=== PATIENT | female | born 1965 | race Caucasian/White ===

== ENCOUNTER 2016-03-29 16:08 | Emergency (ER) | payer MEDICAID, OTHER ==
[2016-03-29] MEDS ORDERED: LIDOCAINE HCL 20 ML UDC MM ONE (16:36)
[2016-03-29] MEDS ORDERED: MAG HYDROX/ALUMINUM HYD/SIMETH 30 ML UDC PO ONE (16:36)
[2016-03-29] MEDS ORDERED: SUCRALFATE 1 G/10 ML UDC PO ONE (16:36)
[2016-03-29 16:48] LABS: Hematocrit 48.8 % (37.0-47.0); Hemoglobin 17.1 gm/dL (12.5-16.0); Mean Cell Volume 88.2 fl (78-100); Mean Corpuscular Hemoglobin 30.9 pg (27-31); Mean Platelet Volume 9.2 fl (6.0-9.5); Neutrophil # 6.3 K/mm3 (1.3-6.0); Neutrophil % 69.8 % (42-75.0); Platelet Count 430 K/mm3 (150-450); Red Blood Count 5.53 M/mm3 (4.2-5.4); Red Cell Distribution Width 12.7 % (11.5-14.0)
[2016-03-29] MEDS ORDERED: ONDANSETRON HCL/PF 2 MG/ML VIAL IV ONE (17:03)
[2016-03-29] MEDS ORDERED: KETOROLAC TROMETHAMINE 30 MG/ML VIAL IV ONE (17:03)
[2016-03-29] MEDS ORDERED: NORMAL SALINE 1,000 ML IV ONE (17:03)
[2016-03-29 17:08] LABS: Urine Bilirubin Negative (NEGATIVE); Urine Blood 250 /ul (NEGATIVE); Urine Ketone 5 mg/dL (NEGATIVE); Urine Nitrite Negative (NEGATIVE); Urine Protein Negative (NEGATIVE); Urine Urobilinogen Normal (NORMAL); Urine pH 5.5 pH (5.0-7.0)
[2016-03-29 17:10] LABS: Albumin * 4.1 gm/dl (3.4-5.0); Anion Gap 15.8 mmol/L (6.8-13.8); BUN/Creatinine Ratio 18.2 (9.0-21.6); Bilirubin, Total 0.3 mg/dL (0.0-1.1); Ca. Corrected For Albumin 9.9 mg/dL (8.4-10.2); Calcium * 10.3 mg/dL (7.9-10.9); Carbon Dioxide 23.6 mmol/L (24-32.6); Potassium 4.4 mmol/L (3.4-4.6); Total Protein 8.3 gm/dL (6.2-8.2)
[2016-03-29 17:15] LABS: Urine Appearance Clear; Urine Bacteria None Seen; Urine Color Yellow; Urine WBC None Seen /hpf (0-5)
[2016-03-29] MEDS ORDERED: ONDANSETRON HCL/PF 2 MG/ML VIAL ONE (17:22)
[2016-03-29] MEDS ORDERED: KETOROLAC TROMETHAMINE 30 MG/ML VIAL ONE (17:22)
[2016-03-29] MEDS ORDERED: MORPHINE SULFATE 2 MG/ML DISP.SYRIN ONE (18:38)
[2016-03-29] MEDS ORDERED: MORPHINE SULFATE 2 MG/ML DISP.SYRIN IV ONE (18:38)
[2016-03-29] MEDS ORDERED: FAMOTIDINE 10 MG/ML VIAL IV ONE ×2 (18:40→18:44)
--- NOTE | 2016-03-29 18:50 | ERNOTE ---
Abdominal HPI - Narrative Date of Service: 03/29/16 - General Chief Complaint: Abdominal Pain Time Seen by Provider: 03/29/16 17:00 Source: patient, RN notes reviewed Exam Limitations: no limitations - Immun/Allergies/Home Medications Immunizatons: IMMUNIZATION HX Immunizations Up to Date Yes History of Influenza Vaccine No Hx Pneumococcal Vaccination No Allergies/Adverse Reactions: Allergies codeine Allergy (Verified 03/29/16 16:29) cortisone [Cortisone] Allergy (Verified 03/29/16 16:29) Home Medications: HOME MEDICATIONS Clonazepam 2 mg PO HS PRN 01/16/15 [Last Taken Unknown] Alprazolam [Xanax Xr] 0.5 mg PO TID 03/29/16 [Last Taken Unknown] Dextroamphetamine/Amphetamine [Adderall 20 mg Tablet] 20 mg PO DAILY 03/29/16 [ Last Taken Unknown] Divalproex Sodium [Depakote ER] 1,000 mg PO DAILY 03/29/16 [Last Taken Unknown] Ibuprofen [Motrin] 200 mg PO Q6H 03/29/16 [Last Taken Unknown] Lisdexamfetamine Dimesylate [Vyvanse] 70 mg PO DAILY 03/29/16 [Last Taken Unknown] Ondansetron HCl [Zofran] 8 mg PO QID 03/29/16 [Last Taken Unknown] Promethazine HCl [Phenergan Suppository] 25 mg RC Q6H PRN #6 supp.rect 03/29/16 [Last Taken Unknown] Propranolol HCl [Inderal Xl] 240 mg PO DAILY 03/29/16 [Last Taken Unknown] Tramadol HCl [Rybix Odt] 100 mg PO QID PRN 03/29/16 [Last Taken Unknown] - History of Present Illness Narrative: 50 y/o female ambulatory to the ED for vomiting that began 2 days ago and epigastric pain that began last night. She routinely takes several different OTC medications for reflux and is on Tramadol for chronic pain. She has not been able to tolerate any of these because of her vomiting. Date (Duration): 03/27/16 Timing: constant Quality: severe Activities at Onset: other - vomiting Review of Systems - Review of Systems Constitutional: Present: fatigue, malaise. Absent: fever, chills EYE: Present: no symptoms reported ENT: Present: no symptoms reported Respiratory: Absent: shortness of breath, cough Cardiology: Absent: chest pain, palpitations, syncope Gastrointestinal/Abdominal: Present: nausea, vomiting, abdominal pain, eating less, drinking less. Absent: diarrhea, constipation Genitourinary: Absent: frequency, dysuria Musculoskeletal: Absent: back pain, neck pain Skin: Absent: rash, lesions Neurological: Absent: headache, dizziness/light-headedness Endocrine: Present: no symptoms reported Hematologic/Lymphatic: Present: no symptoms reported Psych: Present: no symptoms reported - Patient's Past Medical History Patient History - Medical: ADHD, Chronic Pain, GERD, Migraines Patient History - Cardiac/Respiratory: Asthma Patient History - Cancer: No Hx of Cancer Patient History - Surgical Procedures: Cholecystectomy, , Tubal Ligation, Other LMP (females 10-50): 1 month - Social History Living Situations: home Smoking Status: Current every day smoker Have you smoked in the past 12 months: Yes Alcohol Use: none Drug Use: none Physical Exam - Physical Exam General Appearance: Present: wd/wn, alert, mild distress Respiratory: Present: no respiratory distress, normal breath sounds, no accessory muscle use, lungs clear Cardiovascular/Chest: Present: regular rate, rhythm, no murmur, normal peripheral pulses Gastrointestinal/Abdominal: Present: normal bowel sounds, nondistended, soft, tenderness - epigastric Neurological Exam: Present: alert, oriented, normal mood/affect, no motor/ sensory deficits Skin Exam: Present: normal color, warm/dry ED Progress - Results and Orders Patient's Lab Results:: I have reviewed the patient's lab results. - Vital Signs Patient's Vital Signs:: I have reviewed the patient's vital signs. Vital Signs: Vital Signs 03/29/16 03/29/16 03/29/16 16:24 17:15 18:17 Temperature 37.0 C Pulse Rate 150 H 133 H 110 H Respiratory 16 16 16 Rate Blood Pressure 113/76 128/72 138/74 O2 Sat by Pulse 98 97 97 Oximetry - X-Ray X-Ray #1 X-Ray: abdomen Interpretation: Reviewed by me X-ray Comments: Technique: Supine and upright views the abdomen utilizing four total images. Findings: Cholecystectomy clips in the right upper quadrant. Stool mixed with hyperdense material suggestive of [id number] bismuth preparation seen throughout the colon. No dilation of colon. There is a few scattered nondilated air-filled loops of small bowel seen in the mid abdomen. No evidence for small bowel obstruction. Findings could represent gastroenteritis. No free air or free fluid. Mild degenerative change of the lower spine and bilateral hips. IMPRESSION: 1. SCATTERED AIR-FILLED LOOPS OF SMALL BOWEL SUGGESTIVE OF VIRAL GASTROENTERITIS. NO EVIDENCE FOR OBSTRUCTION. 2. CHOLECYSTECTOMY. 3. MILD DEGENERATIVE CHANGES ABOVE. Electronically signed by Keith Andrew D.O.. - Progress/Reassessment Chief Complaint: Abdominal Pain Progress:: Improved Progress Note-Subjective: 03/29/16 18:49 Nausea resolved but no improvement in pain with Toradol. Morphine and Pepcid ordered. Patient appears very uncomfortable. Plan - Plan Plan: Pain resolved with IV Morphine and Pepcid - patient has severe GERD and pain likely caused by her vomiting and being unable to tolerate her routine medications. Has Zofran at home but reports it hasn't been effective. Will d/c with Phenergan suppositories. Departure - Departure Clinical Impression: Epigastric abdominal pain Vomiting Qualifiers: Vomiting type: unspecified Vomiting Intractability: non-intractable Nausea presence: with nausea Qualified Code(s): R11.2 - Nausea with vomiting, unspecified Disposition: Home Follow Up Needed Condition: Good Instructions: Viral Gastroenteritis, Adult, [id number] Additional Instructions: Return for worsening pain or uncontrolled vomiting Referrals: Mitesh Calixto MD [Primary Care Provider] - Prescriptions: Promethazine HCl [Phenergan Suppository] 25 mg RC Q6H PRN #6 supp.rect PRN Reason: Nausea
[2016-03-29] MEDS ORDERED: PROMETHAZINE HCL 12.5 MG SUPP.RECT RC ONE ×2 (20:03→20:06)
[2016-03-29 20:10] VITALS: BP 141/85
== END 2016-03-29 20:08 | disposition home or self-care (01) ==
LOC: ER 16:08
DX: R11.2 Nausea with vomiting, unspecified (principal); R10.13 Epigastric pain; F17.210 Nicotine dependence, cigarettes, uncomplicated

== ENCOUNTER 2016-12-02 16:53 | Emergency (ER) | payer OTHER ==
--- NOTE | 2016-12-02 17:16 | ERNOTE ---
Psychological HPI - General Source: Reports: patient Exam Limitations: Reports: no limitations - Immun/Allergies/Home Medications Allergies/Adverse Reactions: Allergies codeine Allergy (Verified 12/02/16 17:05) cortisone [Cortisone] Allergy (Verified 12/02/16 17:05) Home Medications: HOME MEDICATIONS Clonazepam 2 mg PO HS PRN 01/16/15 [Last Taken Unknown] Alprazolam [Xanax Xr] 1 mg PO BID PRN 03/29/16 [Last Taken Unknown] Ibuprofen [Motrin] 600 mg PO Q6H PRN 03/29/16 [Last Taken Unknown] Lisdexamfetamine Dimesylate [Vyvanse] 70 mg PO DAILY 03/29/16 [Last Taken Unknown] Ondansetron HCl [Zofran] 8 mg PO QID 03/29/16 [Last Taken Unknown] Propranolol HCl [Inderal Xl] 60 mg PO DAILY 03/29/16 [Last Taken Unknown] Tramadol HCl [Rybix Odt] 100 mg PO QID PRN 03/29/16 [Last Taken Unknown] Acetaminophen [Tylenol] 650 mg PO QID 12/02/16 [Last Taken Unknown] Cholecalciferol (Vitamin D3) [Vitamin D3] 5,000 unit PO DAILY 12/02/16 [Last Taken Unknown] Meclizine HCl 25 mg PO TID PRN 12/02/16 [Last Taken Unknown] Multivitamin [Multivitamins] 1 each PO DAILY 12/02/16 [Last Taken Unknown] Nicotine Polacrilex [Nicotine Gum] 4 mg BC Q2H PRN 12/02/16 [Last Taken Unknown] Nicotine [Nicoderm] 21 mg TD DAILY 12/02/16 [Last Taken Unknown] Polyethylene Glycol 3350 [Miralax] 17 gm PO DAILY 12/02/16 [Last Taken Unknown] Ranitidine HCl [Zantac] 300 mg PO HS 12/02/16 [Last Taken Unknown] - History of Present Illness Narrative: Patient has a history of major depression,anxiety, ADHD, and chronic pain. She was discharged from the [facility] a week ago after being hospitalized for two weeks after attempting suicide by cutting her wrist. She is currently staying with her sister that is not supposed to have people stay with her and is coming here for a referral to the [facility] in [place] that has one bed left. She states that she has daily thought of hurting herself. When asked how likely it is that she would hurt herself she vehemently denies acute suicidal ideation. Time Seen by Provider: 12/02/16 16:55 Review of Systems - Review of Systems Constitutional: Absent: recent illness, fever ENT: Absent: nose congestion, sore throat Respiratory: Absent: shortness of breath Cardiology: Absent: chest pain Gastrointestinal/Abdominal: Absent: nausea, abdominal pain Genitourinary: Present: no symptoms reported Musculoskeletal: Present: other - chronic pain Neurological: Present: depressed Endocrine: Present: no symptoms reported Hematologic/Lymphatic: Absent: easy bruising, easy bleeding - Patient's Past Medical History Patient History - Medical: ADHD, Anxiety, Chronic Pain, Depression, GERD, Migraines Patient History - Cardiac/Respiratory: Hypertension Patient History - Cancer: No Hx of Cancer Patient History - Surgical Procedures: Cholecystectomy, , Tubal Ligation, Other, Orthopedic Patient History - Other: None - Social History Living Situations: home Abuse History: No History of abuse Psych History: Psychiatric Hx, Hx of Anxiety, Hx of Depression, Hx of Suicide Attempt, Hx of Psychiatric Tx Smoking Status: Current every day smoker Have you smoked in the past 12 months: Yes Alcohol Use: none Drug Use: none - Immunizations Immunizations Up to Date: Yes Hx Pneumococcal Vaccination: No History of Influenza Vaccine: No Psychological Exam - Exam General Appearance: Present: wd/wn, alert, no apparent distress Head Exam: Present: normal inspection Neurological: Present: alert, normal mood/affect, calm, oriented x 3 Thoughts/Hallucinations: Present: normal thought pattern, no apparent hallucination Behavior/Eye Contact/Speech: Present: cooperative, good eye contact, normal speech Eye Exam: Normal inspection: bilateral Respiratory: Present: no respiratory distress, normal breath sounds, no accessory muscle use, lungs clear Cardiovascular/Chest: Present: regular rate, rhythm, no murmur Extremity Exam: Present: normal inspection Skin Exam: Present: normal color, warm/dry ED Progress - Vital Signs Patient's Vital Signs:: I have reviewed the patient's vital signs. Vital Signs: Vital Signs 12/02/16 16:57 Temperature 37 C Pulse Rate 100 Respiratory 14 Rate Blood Pressure 170/102 O2 Sat by Pulse 100 Oximetry - Progress/Reassessment Progress Note-Subjective: 12/02/16 18:35 call back from [employer] worker, will come to evaluate patient - Transfer of Care Physician Sign Out: Fannie Valenzuela Receiving Physician: Leroy Salazar Departure Clinical Impression: Anxiety Depression Qualifiers: Depression Type: unspecified Qualified Code(s): F32.9 - Major depressive disorder, single episode, unspecified - Departure Disposition: Home self-care Condition: Stable Referrals: Mitesh Calixto MD [Primary Care Provider] -
[2016-12-02] MEDS ORDERED: IBUPROFEN 400 MG TABLET ONE (18:16)
[2016-12-02] MEDS ORDERED: SILVER SULFADIAZINE 50 APPL JAR TP ONE (18:16)
[2016-12-02] MEDS ORDERED: DIPHTH,PERTUSS(ACELL),TET VAC 0.5 ML VIAL IM ONE (18:16)
[2016-12-02 20:08] LABS: Cocaine Ur Negative (NEGATIVE); Urine Barbiturate Negative (NEGATIVE); Urine PCP Negative (NEGATIVE)
[2016-12-02 20:09] LABS: Urine Benzodiazepines Positive (NEGATIVE); Urine Opiates Positive (NEGATIVE); Urine THC Positive (NEGATIVE)
[2016-12-02 21:59] VITALS: BP 150/75
== END 2016-12-02 22:45 | disposition home or self-care (01) ==
LOC: ER 16:53
DX: F41.8 Other specified anxiety disorders (principal); F32.9 Major depressive disorder, single episode, unspecified